=== PATIENT | female | born 1960 | race Caucasian/White ===

== ENCOUNTER 2017-11-15 11:26 | Inpatient (IN) | payer MEDICAID, OTHER ==
[~2017-11-15] VITALS: Ht 154.9 cm; Wt 44.4 kg
[2017-11-15 12:20] LABS: BASOPHILS % (AUTO) 0.6 % (0-1); EOSINOPHILS # (AUTO) 0.2 X10'3 (0-0.9); EOSINOPHILS % (AUTO) 2.2 % (0-6); HEMATOCRIT 46.8 % (35.0-45.0); HEMOGLOBIN 15.2 g/dl (12.0-16.0); LYMPHOCYTES # (AUTO) 1.1 X10'3 (1.1-4.8); LYMPHOCYTES % (AUTO) 13.7 % (21-51); MEAN CORPUSCULAR HEMOGLOBIN 29.5 PG (27.0-31.0); MEAN CORPUSCULAR HGB CONC 32.5 % (33.0-36.5); MEAN CORPUSCULAR VOLUME 90.7 FL (78-98); MEAN PLATELET VOLUME 7.5 FL (7.4-10.4); MONOCYTES # (AUTO) 0.4 X10'3 (0-0.9); MONOCYTES % (AUTO) 5.2 % (2-12); NEUTROPHILS % (AUTO) 78.3 % (42-75); PLATELET COUNT 329 X10'3 (140-440); RED BLOOD COUNT 5.15 X10'6 (4.20-5.60); WHITE BLOOD COUNT 7.7 X10'3 (4.5-11.0)
[2017-11-15] MEDS ORDERED: diltiazem 5mg/ml 5ml inj. IV ONE (12:20)
[2017-11-15] MEDS ORDERED: normal saline 1000ML IV soln IV ONE (12:20)
[2017-11-15] MEDS ORDERED: methylPREDNISolone sod succ 125mg/2ml vial IV ONE (12:20)
[2017-11-15] MEDS ORDERED: furosemide 40mg/4ml inj IV ONE (12:20)
[2017-11-15] MEDS ORDERED: ipratropium/albuterol 3ml nebule NEB ONE (12:20)
[2017-11-15 12:23] LABS: PARTIAL THROMBOPLASTIN TIME 24 SECONDS (22-32); PROTHROMBIN TIME 10.8 SECONDS (9.0-12.0)
[2017-11-15 12:29] LABS: ALANINE AMINOTRANSFERASE 75 U/L (12-78); ALBUMIN 3.5 G/DL (3.4-5.0); ALBUMIN/GLOBULIN RATIO 1.1 (1.1-1.5); ALKALINE PHOSPHATASE 61 IU/L (46-116); ANION GAP 7 (8-16); ASPARTATE AMINO TRANSFERASE 29 U/L (10-37); BILIRUBIN,TOTAL 0.6 MG/DL (0.1-1.0); BLOOD UREA NITROGEN 16 MG/DL (7-18); BUN/CREATININE RATIO 29.1 (6.6-38.0); CALCIUM 9.5 MG/DL (8.5-10.1); CHLORIDE 104 MMOL/L (99-107); CREATININE 0.55 MG/DL (0.40-0.90); GLUCOSE 101 MG/DL (70-104); SODIUM 145 MMOL/L (135-145); TOTAL CARBON DIOXIDE 33.6 MMOL/L (24-32); TOTAL PROTEIN 6.8 G/DL (6.4-8.2); eGFR > 90 ML/MIN
[2017-11-15] MEDS ORDERED: normal saline 1000ml 1,000 ML IV SCH (12:40)
[2017-11-15] MEDS ORDERED: potassium Cl oral solution 20 MEQ/15 ML PO ONE (12:40)
[2017-11-15] MEDS: metoprolol tartrate 1mg/ml inj IV ONE ×2 (12:56→13:21)
[2017-11-15] MEDS ORDERED: BUDE10.2 INH (14:52)
[2017-11-15] MEDS ORDERED: ALBU8.5H8 INH (14:53)
[2017-11-15] MEDS ORDERED: HYDROcodone/acetaminophen 5mg/325mg tablet PO PRN (15:20)
[2017-11-15] MEDS ORDERED: potassium Cl 40MEQ/NS 500ml 500 ML IV PRN ×2 (15:20)
[2017-11-15] MEDS ORDERED: bisacodyl 10mg suppository rectal RC PRN (15:20)
[2017-11-15] MEDS ORDERED: magnesium 4gm in 100ml NS 100 ML IV PRN (15:20)
[2017-11-15] MEDS ORDERED: magnesium 1gm/100ml D5W IVPB 100 ML IV PRN (15:20)
[2017-11-15] MEDS ORDERED: magnesium hydroxide 30ml (MOM) UD suspension PO PRN (15:20)
[2017-11-15] MEDS ORDERED: magnesium Cl slow-release 64mg tablet PO PRN (15:20)
[2017-11-15] MEDS ORDERED: potassium Cl 20 mEq SR tablet PO PRN ×2 (15:20)
[2017-11-15] MEDS ORDERED: acetaminophen 325mg tablet PO PRN (15:20)
[2017-11-15] MEDS ORDERED: morphine 2 MG/ML inj. syringe IV PRN ×2 (15:20)
[2017-11-15] MEDS ORDERED: mag hydrox/Alum hydrox/simeth 30ml oral suspension PO PRN (15:20)
[2017-11-15] MEDS ORDERED: ondansetron/PF 4mg/2ml inj IV PRN (15:20)
[2017-11-15] MEDS ORDERED: non-formulary drug (Albuterol Sulfate (Proair Hfa) 2 PUFFS) INH PRN (15:25)
[2017-11-15] MEDS ORDERED: nitroGLYCERIN 0.4mg SUBLingual tab SL PRN (15:30)
[2017-11-15] MEDS ORDERED: albuterol 2.5 MG/3 ML nebule NEB PRN (15:35)
[2017-11-15] MEDS: enoxaparin 50mg/0.5ml (from 3ml vial) syringe SUBCUT SCH (18:55)
[2017-11-15] MEDS ORDERED: albuterol 2.5 MG/3 ML nebule NEB SCH (19:00)
[2017-11-15] MEDS: ipratropium/albuterol 3ml nebule NEB SCH ×2 (19:08→23:38)
[2017-11-15] MEDS: methylPREDNISolone sod succ 125mg/2ml vial IV SCH (19:37)
[2017-11-15] MEDS: aspirin 325mg tablet, delayed-release (Ecotrin) PO SCH (19:37)
[2017-11-15] MEDS: potassium Cl 20 mEq SR tablet PO SCH (19:38)
[2017-11-15] MEDS: furosemide 20 MG/2 ML vial IV SCH (19:38)
[2017-11-15] MEDS: metoprolol tartrate 12.5mg (1/2 tablet) PO SCH (19:38)
[2017-11-15] MEDS: docusate sod 100mg capsule PO SCH (19:39)
[2017-11-15] MEDS ORDERED: non-formulary drug (Budesonide/Formoterol Fumarate (Symbicort 160-4.5 Mcg Inhaler) 1 PUFFS INH SCH (20:00)
[2017-11-15 23:00] VITALS: BP 96/59
[2017-11-15] MEDS: budesonide 0.5mg/2ml UD nebule IH SCH (23:38)
[2017-11-16] MEDS: methylPREDNISolone sod succ 125mg/2ml vial IV SCH ×4 (02:04→20:46)
[2017-11-16 02:11] LABS: ALANINE AMINOTRANSFERASE 69 U/L (12-78); ALKALINE PHOSPHATASE 51 IU/L (46-116); ANION GAP 7 (8-16); ASPARTATE AMINO TRANSFERASE 32 U/L (10-37); BILIRUBIN,TOTAL 0.5 MG/DL (0.1-1.0); BLOOD UREA NITROGEN 17 MG/DL (7-18); BUN/CREATININE RATIO 30.9 (6.6-38.0); CALCIUM 8.7 MG/DL (8.5-10.1); CHLORIDE 102 MMOL/L (99-107); CREATININE 0.55 MG/DL (0.40-0.90); GLUCOSE 137 MG/DL (70-104); POTASSIUM 4.2 MMOL/L (3.5-5.1); SODIUM 142 MMOL/L (135-145); TOTAL CARBON DIOXIDE 32.9 MMOL/L (24-32); TOTAL PROTEIN 6.1 G/DL (6.4-8.2); eGFR > 90 ML/MIN
[2017-11-16 02:14] LABS: CHOLESTEROL 150 MG/DL (0-200); HDL CHOLESTEROL 76 MG/DL (35-60); LDL CHOLESTEROL 66 MG/DL (50-100); MAGNESIUM 1.8 MG/DL (1.5-2.4); TRIGLYCERIDES 37 MG/DL (20-135)
[2017-11-16 02:15] LABS: BASOPHILS % (AUTO) 0.5 % (0-1); EOSINOPHILS % (AUTO) 0 % (0-6); HEMATOCRIT 42.2 % (35.0-45.0); HEMOGLOBIN 14.2 g/dl (12.0-16.0); LYMPHOCYTES # (AUTO) 0.5 X10'3 (1.1-4.8); MEAN CORPUSCULAR HEMOGLOBIN 30.1 PG (27.0-31.0); MEAN CORPUSCULAR HGB CONC 33.7 % (33.0-36.5); MEAN CORPUSCULAR VOLUME 89.5 FL (78-98); MONOCYTES % (AUTO) 0.4 % (2-12); NEUTROPHILS # (AUTO) 4.7 X10'3 (1.8-7.7); NEUTROPHILS % (AUTO) 89.1 % (42-75); PLATELET COUNT 320 X10'3 (140-440); RED BLOOD COUNT 4.71 X10'6 (4.20-5.60); RED CELL DISTRIBUTION WIDTH 13.9 % (11.5-14.5); WHITE BLOOD COUNT 5.2 X10'3 (4.5-11.0)
[2017-11-16 03:00] VITALS: BP 109/71
[2017-11-16] MEDS: ipratropium/albuterol 3ml nebule NEB SCH ×6 (03:00→22:52)
[2017-11-16] MEDS: enoxaparin 50mg/0.5ml (from 3ml vial) syringe SUBCUT SCH ×2 (03:38→08:00)
[2017-11-16 07:49] VITALS: BP 103/65
[2017-11-16] MEDS: K and/or MAG REPLACEMENT MC SCH (07:51)
[2017-11-16] MEDS: docusate sod 100mg capsule PO SCH ×2 (07:52→20:00)
[2017-11-16] MEDS: pantoprazole 40mg Tablet.DR PO SCH (07:54)
[2017-11-16] MEDS: metoprolol tartrate 12.5mg (1/2 tablet) PO SCH ×2 (07:55→20:54)
[2017-11-16] MEDS: aspirin 325mg tablet, delayed-release (Ecotrin) PO SCH (07:55)
[2017-11-16] MEDS: furosemide 20 MG/2 ML vial IV SCH ×2 (07:55→20:48)
[2017-11-16] MEDS: potassium Cl 20 mEq SR tablet PO SCH ×2 (07:55→17:58)
[2017-11-16] MEDS: budesonide 0.5mg/2ml UD nebule IH SCH ×2 (08:00→19:17)
[2017-11-16] MEDS ORDERED: iohexol 350MG/ML 100ml bottle IV ONE (15:38)
[2017-11-16 16:05] VITALS: BP 96/63
[2017-11-16 18:00] VITALS: BP 102/62
[2017-11-16] MEDS: doxycycline inj 100 MG in normal saline 100ml IV soln 100 ML IV SCH (20:43)
[2017-11-16 22:00] VITALS: BP 110/78
[2017-11-17 02:00] VITALS: BP 113/72
[2017-11-17] MEDS: methylPREDNISolone sod succ 125mg/2ml vial IV SCH ×4 (02:29→20:22)
[2017-11-17] MEDS: ipratropium/albuterol 3ml nebule NEB SCH ×2 (03:00→07:40)
[2017-11-17 06:00] VITALS: BP 112/69
[2017-11-17 06:03] LABS: BASOPHILS % (AUTO) 0.5 % (0-1); EOSINOPHILS % (AUTO) 0.1 % (0-6); HEMATOCRIT 38.8 % (35.0-45.0); HEMOGLOBIN 13.4 g/dl (12.0-16.0); LYMPHOCYTES # (AUTO) 0.4 X10'3 (1.1-4.8); LYMPHOCYTES % (AUTO) 4.9 % (21-51); MEAN CORPUSCULAR HGB CONC 34.5 % (33.0-36.5); MEAN CORPUSCULAR VOLUME 89.9 FL (78-98); MEAN PLATELET VOLUME 7.9 FL (7.4-10.4); MONOCYTES # (AUTO) 0.1 X10'3 (0-0.9); MONOCYTES % (AUTO) 0.8 % (2-12); NEUTROPHILS # (AUTO) 8.6 X10'3 (1.8-7.7); NEUTROPHILS % (AUTO) 93.7 % (42-75); PLATELET COUNT 314 X10'3 (140-440); RED BLOOD COUNT 4.32 X10'6 (4.20-5.60); RED CELL DISTRIBUTION WIDTH 13.7 % (11.5-14.5); WHITE BLOOD COUNT 9.1 X10'3 (4.5-11.0)
[2017-11-17 06:05] LABS: ALANINE AMINOTRANSFERASE 57 U/L (12-78); ALBUMIN 2.9 G/DL (3.4-5.0); ALKALINE PHOSPHATASE 42 IU/L (46-116); ANION GAP 4 (8-16); ASPARTATE AMINO TRANSFERASE 22 U/L (10-37); BILIRUBIN,TOTAL 0.4 MG/DL (0.1-1.0); BLOOD UREA NITROGEN 27 MG/DL (7-18); BUN/CREATININE RATIO 38.6 (6.6-38.0); CALCIUM 8.6 MG/DL (8.5-10.1); CHLORIDE 102 MMOL/L (99-107); GLUCOSE 139 MG/DL (70-104); POTASSIUM 4.4 MMOL/L (3.5-5.1); SODIUM 139 MMOL/L (135-145); TOTAL CARBON DIOXIDE 33.1 MMOL/L (24-32); TOTAL PROTEIN 5.7 G/DL (6.4-8.2); eGFR 87 ML/MIN
[2017-11-17] MEDS: budesonide 0.5mg/2ml UD nebule IH SCH ×2 (07:40→21:10)
[2017-11-17] MEDS: K and/or MAG REPLACEMENT MC SCH (08:00)
[2017-11-17] MEDS: docusate sod 100mg capsule PO SCH ×2 (08:00→20:23)
[2017-11-17] MEDS: doxycycline inj 100 MG in normal saline 100ml IV soln 100 ML IV SCH ×2 (10:11→20:23)
[2017-11-17] MEDS: furosemide 20 MG/2 ML vial IV SCH ×2 (10:13→20:22)
[2017-11-17] MEDS: enoxaparin 30mg/0.3ml syringe SUBCUT SCH (10:13)
[2017-11-17] MEDS: aspirin 325mg tablet, delayed-release (Ecotrin) PO SCH (10:14)
[2017-11-17] MEDS: pantoprazole 40mg Tablet.DR PO SCH (10:14)
[2017-11-17] MEDS: potassium Cl 20 mEq SR tablet PO SCH ×2 (10:17→19:40)
[2017-11-17] MEDS: metoprolol tartrate 12.5mg (1/2 tablet) PO SCH ×2 (10:20→20:23)
[2017-11-17 11:00] VITALS: BP 112/81
[2017-11-17 15:00] VITALS: BP 91/52
[2017-11-17] MEDS: levalbuterol 0.63mg/3ml nebule IH SCH ×2 (15:00→21:09)
[2017-11-17] MEDS: ipratropium 0.5 MG/2.5ML nebule IH SCH ×2 (15:00→21:10)
[2017-11-17 18:00] VITALS: BP 104/65
[2017-11-17] MEDS: lactobacillus rhamnosus 10,000 MMU CELLS/CAPSULE PO SCH (20:23)
[2017-11-17 22:00] VITALS: BP 99/55
[2017-11-18 02:00] VITALS: BP 105/69
[2017-11-18] MEDS: methylPREDNISolone sod succ 125mg/2ml vial IV SCH ×5 (02:00→20:43)
[2017-11-18 06:00] VITALS: BP 107/66
[2017-11-18 06:35] LABS: BASOPHILS % (AUTO) 0.2 % (0-1); EOSINOPHILS % (AUTO) 0.1 % (0-6); HEMATOCRIT 41.9 % (35.0-45.0); HEMOGLOBIN 14.1 g/dl (12.0-16.0); LYMPHOCYTES # (AUTO) 0.7 X10'3 (1.1-4.8); LYMPHOCYTES % (AUTO) 8.3 % (21-51); MEAN CORPUSCULAR HEMOGLOBIN 30.5 PG (27.0-31.0); MEAN CORPUSCULAR HGB CONC 33.8 % (33.0-36.5); MEAN CORPUSCULAR VOLUME 90.4 FL (78-98); MEAN PLATELET VOLUME 7.9 FL (7.4-10.4); MONOCYTES # (AUTO) 0.5 X10'3 (0-0.9); MONOCYTES % (AUTO) 5.1 % (2-12); NEUTROPHILS # (AUTO) 7.8 X10'3 (1.8-7.7); NEUTROPHILS % (AUTO) 86.3 % (42-75); PLATELET COUNT 300 X10'3 (140-440); RED BLOOD COUNT 4.64 X10'6 (4.20-5.60)
[2017-11-18 06:58] LABS: ALANINE AMINOTRANSFERASE 53 U/L (12-78); ALKALINE PHOSPHATASE 43 IU/L (46-116); ANION GAP 5 (8-16); ASPARTATE AMINO TRANSFERASE 20 U/L (10-37); BILIRUBIN,TOTAL 0.6 MG/DL (0.1-1.0); BLOOD UREA NITROGEN 24 MG/DL (7-18); BUN/CREATININE RATIO 36.9 (6.6-38.0); CALCIUM 8.7 MG/DL (8.5-10.1); CHLORIDE 103 MMOL/L (99-107); CREATININE 0.65 MG/DL (0.40-0.90); GLUCOSE 109 MG/DL (70-104); MAGNESIUM 2.1 MG/DL (1.5-2.4); POTASSIUM 4.4 MMOL/L (3.5-5.1); SODIUM 141 MMOL/L (135-145); TOTAL CARBON DIOXIDE 33.3 MMOL/L (24-32); TOTAL PROTEIN 5.9 G/DL (6.4-8.2); eGFR > 90 ML/MIN
[2017-11-18] MEDS: docusate sod 100mg capsule PO SCH ×2 (08:00→20:00)
[2017-11-18] MEDS: K and/or MAG REPLACEMENT MC SCH (08:00)
[2017-11-18] MEDS: budesonide 0.5mg/2ml UD nebule IH SCH ×2 (08:21→21:46)
[2017-11-18] MEDS: ipratropium 0.5 MG/2.5ML nebule IH SCH ×3 (08:21→21:46)
[2017-11-18] MEDS: levalbuterol 0.63mg/3ml nebule IH SCH ×3 (08:21→21:45)
[2017-11-18] MEDS: lactobacillus rhamnosus 10,000 MMU CELLS/CAPSULE PO SCH ×2 (09:13→20:44)
[2017-11-18] MEDS: doxycycline inj 100 MG in normal saline 100ml IV soln 100 ML IV SCH ×2 (09:13→20:44)
[2017-11-18] MEDS: aspirin 325mg tablet, delayed-release (Ecotrin) PO SCH (09:14)
[2017-11-18] MEDS: pantoprazole 40mg Tablet.DR PO SCH (09:15)
[2017-11-18] MEDS: potassium Cl 20 mEq SR tablet PO SCH ×2 (09:15→17:24)
[2017-11-18] MEDS: furosemide 20 MG/2 ML vial IV SCH ×2 (09:16→20:43)
[2017-11-18] MEDS: metoprolol tartrate 12.5mg (1/2 tablet) PO SCH ×2 (09:16→20:44)
[2017-11-18] MEDS: enoxaparin 30mg/0.3ml syringe SUBCUT SCH (09:17)
[2017-11-18 11:00] VITALS: BP 122/71
[2017-11-18 15:00] VITALS: BP 111/72
[2017-11-18 18:00] VITALS: BP 111/72
[2017-11-18 22:00] VITALS: BP 110/72
[2017-11-19 02:00] VITALS: BP 95/56
[2017-11-19] MEDS: methylPREDNISolone sod succ 125mg/2ml vial IV SCH ×4 (03:12→20:19)
[2017-11-19 05:49] LABS: BASOPHILS % (AUTO) 0.6 % (0-1); EOSINOPHILS % (AUTO) 0 % (0-6); HEMATOCRIT 44.7 % (35.0-45.0); HEMOGLOBIN 14.5 g/dl (12.0-16.0); LYMPHOCYTES # (AUTO) 0.6 X10'3 (1.1-4.8); LYMPHOCYTES % (AUTO) 9.4 % (21-51); MEAN CORPUSCULAR HEMOGLOBIN 29.4 PG (27.0-31.0); MEAN CORPUSCULAR HGB CONC 32.4 % (33.0-36.5); MEAN CORPUSCULAR VOLUME 90.5 FL (78-98); MEAN PLATELET VOLUME 7.5 FL (7.4-10.4); MONOCYTES # (AUTO) 0.4 X10'3 (0-0.9); MONOCYTES % (AUTO) 5.4 % (2-12); NEUTROPHILS # (AUTO) 5.7 X10'3 (1.8-7.7); NEUTROPHILS % (AUTO) 84.6 % (42-75); PLATELET COUNT 311 X10'3 (140-440); RED BLOOD COUNT 4.94 X10'6 (4.20-5.60); WHITE BLOOD COUNT 6.7 X10'3 (4.5-11.0)
[2017-11-19 06:00] VITALS: BP 108/82
[2017-11-19 06:37] LABS: ALANINE AMINOTRANSFERASE 50 U/L (12-78); ALBUMIN 3.1 G/DL (3.4-5.0); ALBUMIN/GLOBULIN RATIO 1.1 (1.1-1.5); ALKALINE PHOSPHATASE 46 IU/L (46-116); ANION GAP 3 (8-16); ASPARTATE AMINO TRANSFERASE 14 U/L (10-37); BILIRUBIN,TOTAL 0.6 MG/DL (0.1-1.0); BLOOD UREA NITROGEN 25 MG/DL (7-18); BUN/CREATININE RATIO 39.1 (6.6-38.0); CALCIUM 8.7 MG/DL (8.5-10.1); CHLORIDE 101 MMOL/L (99-107); CREATININE 0.64 MG/DL (0.40-0.90); GLUCOSE 109 MG/DL (70-104); MAGNESIUM 2.1 MG/DL (1.5-2.4); POTASSIUM 4.5 MMOL/L (3.5-5.1); SODIUM 140 MMOL/L (135-145); TOTAL CARBON DIOXIDE 36.4 MMOL/L (24-32); TOTAL PROTEIN 5.9 G/DL (6.4-8.2); eGFR > 90 ML/MIN
[2017-11-19] MEDS: K and/or MAG REPLACEMENT MC SCH (08:00)
[2017-11-19] MEDS: docusate sod 100mg capsule PO SCH ×2 (08:00→20:00)
[2017-11-19] MEDS: metoprolol tartrate 12.5mg (1/2 tablet) PO SCH ×2 (08:27→20:18)
[2017-11-19] MEDS: furosemide 20 MG/2 ML vial IV SCH ×2 (08:27→20:19)
[2017-11-19] MEDS: lactobacillus rhamnosus 10,000 MMU CELLS/CAPSULE PO SCH ×2 (08:27→20:18)
[2017-11-19] MEDS: aspirin 325mg tablet, delayed-release (Ecotrin) PO SCH (08:27)
[2017-11-19] MEDS: pantoprazole 40mg Tablet.DR PO SCH (08:27)
[2017-11-19] MEDS: potassium Cl 20 mEq SR tablet PO SCH ×2 (08:27→17:25)
[2017-11-19] MEDS: enoxaparin 30mg/0.3ml syringe SUBCUT SCH (08:28)
[2017-11-19] MEDS: doxycycline inj 100 MG in normal saline 100ml IV soln 100 ML IV SCH (08:29)
[2017-11-19] MEDS: levalbuterol 0.63mg/3ml nebule IH SCH ×3 (09:39→20:45)
[2017-11-19] MEDS: ipratropium 0.5 MG/2.5ML nebule IH SCH ×3 (09:39→20:45)
[2017-11-19] MEDS: budesonide 0.5mg/2ml UD nebule IH SCH ×2 (09:39→20:44)
[2017-11-19 09:51] LABS: ABG BASE EXCESS 6.1 mmol/L (-2.0-3.0); ABG HCO3 32.6 mmol/L (22.0-26.0); ABG OXYGEN SATURATION 95.7 % (95-98); ABG PCO2 (T) 53.9 mmHg (32.0-45.0); ABG PO2 (T) 80.2 mmHg (83-108); FCOHb 1.2 % (0.5-1.5); FLOW 2 L/min; FMetHb 0.3 % (0.3-1.12); FO2Hb 94.3 % (94-100); TOTAL HEMOGLOBIN 16.2 G/dl (12.0-16.0)
[2017-11-19 11:00] VITALS: BP 108/70
[2017-11-19 15:00] VITALS: BP 109/69
[2017-11-19] MEDS: doxycycline hyclate 100mg tablet.DR PO SCH (17:25)
[2017-11-19 19:00] VITALS: BP 118/71
[2017-11-19 23:00] VITALS: BP 105/65
[2017-11-20] MEDS: methylPREDNISolone sod succ 125mg/2ml vial IV SCH (01:41)
[2017-11-20 03:00] VITALS: BP 101/56
[2017-11-20 05:23] LABS: BASOPHILS # (AUTO) 0.1 X10'3 (0-0.2); BASOPHILS % (AUTO) 1.1 % (0-1); EOSINOPHILS % (AUTO) 0 % (0-6); HEMATOCRIT 48.9 % (35.0-45.0); LYMPHOCYTES # (AUTO) 0.6 X10'3 (1.1-4.8); LYMPHOCYTES % (AUTO) 6.9 % (21-51); MEAN CORPUSCULAR HEMOGLOBIN 29.7 PG (27.0-31.0); MEAN CORPUSCULAR HGB CONC 32.7 % (33.0-36.5); MEAN CORPUSCULAR VOLUME 90.8 FL (78-98); MEAN PLATELET VOLUME 7.7 FL (7.4-10.4); MONOCYTES # (AUTO) 0.2 X10'3 (0-0.9); MONOCYTES % (AUTO) 2.3 % (2-12); NEUTROPHILS # (AUTO) 7.2 X10'3 (1.8-7.7); NEUTROPHILS % (AUTO) 89.7 % (42-75); PLATELET COUNT 338 X10'3 (140-440); RED BLOOD COUNT 5.38 X10'6 (4.20-5.60); RED CELL DISTRIBUTION WIDTH 14.7 % (11.5-14.5)
[2017-11-20 05:59] LABS: ALANINE AMINOTRANSFERASE 52 U/L (12-78); ALBUMIN 3.4 G/DL (3.4-5.0); ALBUMIN/GLOBULIN RATIO 1.1 (1.1-1.5); ALKALINE PHOSPHATASE 52 IU/L (46-116); ANION GAP 5 (8-16); ASPARTATE AMINO TRANSFERASE 11 U/L (10-37); BLOOD UREA NITROGEN 25 MG/DL (7-18); BUN/CREATININE RATIO 32.5 (6.6-38.0); CALCIUM 8.8 MG/DL (8.5-10.1); CHLORIDE 100 MMOL/L (99-107); CREATININE 0.77 MG/DL (0.40-0.90); GLUCOSE 135 MG/DL (70-104); MAGNESIUM 2.2 MG/DL (1.5-2.4); POTASSIUM 4.7 MMOL/L (3.5-5.1); SODIUM 138 MMOL/L (135-145); TOTAL CARBON DIOXIDE 32.8 MMOL/L (24-32); TOTAL PROTEIN 6.6 G/DL (6.4-8.2); eGFR 78 ML/MIN
[2017-11-20 06:00] VITALS: BP 104/67
[2017-11-20] MEDS: levalbuterol 0.63mg/3ml nebule IH SCH ×2 (07:50→14:24)
[2017-11-20] MEDS: budesonide 0.5mg/2ml UD nebule IH SCH (07:50)
[2017-11-20] MEDS: ipratropium 0.5 MG/2.5ML nebule IH SCH ×2 (07:51→14:24)
[2017-11-20] MEDS: K and/or MAG REPLACEMENT MC SCH (08:00)
[2017-11-20] MEDS ORDERED: methylPREDNISolone sod succ 125mg/2ml vial IV SCH (08:00)
[2017-11-20] MEDS: docusate sod 100mg capsule PO SCH (08:00)
[2017-11-20] MEDS: furosemide 20 MG/2 ML vial IV SCH (09:12)
[2017-11-20] MEDS: pantoprazole 40mg Tablet.DR PO SCH (09:13)
[2017-11-20] MEDS: doxycycline hyclate 100mg tablet.DR PO SCH (09:13)
[2017-11-20] MEDS: metoprolol tartrate 12.5mg (1/2 tablet) PO SCH (09:14)
[2017-11-20] MEDS: lactobacillus rhamnosus 10,000 MMU CELLS/CAPSULE PO SCH (09:14)
[2017-11-20] MEDS: potassium Cl 20 mEq SR tablet PO SCH (09:14)
[2017-11-20] MEDS: aspirin 325mg tablet, delayed-release (Ecotrin) PO SCH (09:14)
[2017-11-20] MEDS: enoxaparin 30mg/0.3ml syringe SUBCUT SCH (09:16)
[2017-11-20 11:00] VITALS: BP 119/80
[2017-11-20] MEDS ORDERED: PANT40TA4 PO (11:51)
[2017-11-20] MEDS ORDERED: LEVA0.6319 IH (11:51)
[2017-11-20] MEDS ORDERED: ATR0.5NEB IH (11:51)
[2017-11-20] MEDS ORDERED: FURO-150 PO (11:51)
[2017-11-20] MEDS ORDERED: PRED20TA PO (11:51)
[2017-11-20] MEDS ORDERED: DOXY-200 PO (11:51)
== END 2017-11-20 15:07 | disposition home or self-care (01) | DRG 194 ==
LOC: ER 11:27 → ED HOLD 15:20 → PCU 3S 16:25
PROVIDERS: ADMIT Internal Medicine; ATTEND Family Medicine
PROC: 3E02340 Introduction of Influenza Vaccine into Muscle, Percutaneous Approach (ICD-10-PCS; principal; 2017-11-16)
PROC: B3201ZZ Computerized Tomography (CT Scan) of Thoracic Aorta using Low Osmolar Contrast (ICD-10-PCS; 2017-11-16)
DX: I50.31 Acute diastolic (congestive) heart failure (principal); J96.01 Acute respiratory failure with hypoxia; E86.0 Dehydration; J44.1 Chronic obstructive pulmonary disease with (acute) exacerbation; F17.210 Nicotine dependence, cigarettes, uncomplicated; R00.0 Tachycardia, unspecified; I34.0 Nonrheumatic mitral (valve) insufficiency; E87.6 Hypokalemia; F12.90 Cannabis use, unspecified, uncomplicated; Z79.51 Long term (current) use of inhaled steroids; Z79.82 Long term (current) use of aspirin; Z79.899 Other long term (current) drug therapy; Z23 Encounter for immunization; Z71.6 Tobacco abuse counseling
CPT/HCPCS: 36415; 36600; 71045; 71275; 80053; 80061; 82803; 83605; 83735; 83880; 84132; 84484; 85018; 85025; 85610; 85730; 87040; 87070; 93005; 93306; 93970; 94640; 94760; 96361; 96374; 96375; 99285; G0378; J1650; J1940; J2930; J3490; J7030; J7614; J7626; Q2037; Q9967